=== PATIENT | male | born 1955 | race Caucasian/White ===

== ENCOUNTER 2023-04-03 00:35 | Inpatient (IN) | payer MEDICARE, SELFPAY ==
[2023-04-03] MEDS ORDERED: Ondansetron PF 4 MG/2 ML Vial ONE (00:58)
[2023-04-03] MEDS ORDERED: Morphine 4 MG/ML VIAL ONE (00:58)
[2023-04-03 01:24] LABS: #Monocytes 0.3 thou/uL (0.11-0.59); #Neutrophils 7.9 thou/uL (1.40-6.50); %Basophils 0.4 % (0.0-1.0); %Eosinophils 0.1 % (0.0-10.0); %Lymphocytes 8.3 % (21.0-51.0); %Monocytes 3.5 % (0.0-10.0); %Neutrophils 87.3 % (42.0-75.0); Hematocrit 41.7 % (42.0-52.0); Hemoglobin 14.5 g/dL (14.0-18.0); Mean Corpuscular HGB CONC 34.8 g/dL (32.0-36.0); Mean Corpuscular Volume 89.1 fl (78.0-98.0); Mean Platelet Volume 10.3 fL (7.4-10.4); Platelet Count 193 10x3/uL (130-400); RBC Distribution Width 13.8 % (11.5-14.5); Red Blood Cell (RBC) Count 4.68 mill/uL (4.70-6.10); White Blood Cell (WBC) Count 9.1 10x3/uL (4.8-10.8)
[2023-04-03 01:47] LABS: Anion Gap 16 mmol/L (10-20); BUN (Urea Nitrogen) 10 mg/dL (8.4-25.7); Calc. Creatinine Clearance 0 mL/min (70-130); Calcium 8.6 mg/dL (7.8-10.44); Carbon Dioxide 18 mmol/L (23-31); Chloride 107 mmol/L (98-107); Estimated GFR 95; Glucose 158 mg/dL (80-115); Lipase 9 U/L (8-78); Potassium 3.4 mmol/L (3.5-5.1); Sodium 138 mmol/L (136-145)
[2023-04-03] MEDS ORDERED: Potassium Chloride 20 MEQ TAB ONE (02:35)
[2023-04-03] MEDS ORDERED: Acetaminophen 325 MG TAB PO PRN (03:26)
[2023-04-03] MEDS ORDERED: Promethazine HCl 12.5 MG in Sodium Chloride 0.9% 50 ML IVPB PRN (03:26)
[2023-04-03] MEDS ORDERED: Pantoprazole 40 MG VIAL IVP SCH (03:30)
[2023-04-03] MEDS ORDERED: Sodium Chloride 0.9% 1,000 ML IV SCH (03:30)
[2023-04-03 03:44] LABS: Magnesium 1.6 mg/dL (1.6-2.6)
[2023-04-03 04:14] LABS: #Monocytes 0.2 thou/uL (0.11-0.59); #Neutrophils 6.7 thou/uL (1.40-6.50); %Basophils 0.4 % (0.0-1.0); %Lymphocytes 7.9 % (21.0-51.0); %Monocytes 2.8 % (0.0-10.0); %Neutrophils 88.2 % (42.0-75.0); Hematocrit 41.2 % (42.0-52.0); Hemoglobin 14.2 g/dL (14.0-18.0); Mean Corpuscular HGB CONC 34.5 g/dL (32.0-36.0); Mean Corpuscular Hemoglobin 30.9 pg (27.0-31.0); Mean Corpuscular Volume 89.6 fl (78.0-98.0); Mean Platelet Volume 10.5 fL (7.4-10.4); Platelet Count 194 10x3/uL (130-400); RBC Distribution Width 13.8 % (11.5-14.5); White Blood Cell (WBC) Count 7.6 10x3/uL (4.8-10.8)
[2023-04-03] MEDS ORDERED: Dextrose 50% Abboject 50 ML SYRINGE SLOW IVP PRN (04:21)
[2023-04-03] MEDS ORDERED: Glucagon 1 MG/ML KIT IM PRN (04:21)
[2023-04-03] MEDS ORDERED: HumaLOG 300 UNITS/3 ML VIAL SC PRN ×2 (04:21)
[2023-04-03] MEDS ORDERED: Dextrose 5% in Water 1,000 ML IV PRN (04:21)
[2023-04-03 04:42] LABS: Anion Gap 14 mmol/L (10-20); BUN (Urea Nitrogen) 9 mg/dL (8.4-25.7); Calc. Creatinine Clearance 0 mL/min (70-130); Calcium 8.3 mg/dL (7.8-10.44); Carbon Dioxide 19 mmol/L (23-31); Chloride 107 mmol/L (98-107); Estimated GFR 97; Glucose 188 mg/dL (80-115); Potassium 3.8 mmol/L (3.5-5.1); Sodium 136 mmol/L (136-145)
[2023-04-03] MEDS ORDERED: Magnesium Sulfate 3 GM in Sodium Chloride 0.9% 100 ML IVPB SCH (05:00)
[2023-04-03 05:03] LABS: Hemoglobin A1c 9.3 % (4.0-6.0)
[2023-04-03 05:23] LABS: Lactic Acid 1.7 mmol/L (0.5-2.2)
[2023-04-03 06:59] LABS: SARS-CoV-2 NAA Rapid Test Not Detected (NotDetected)
[2023-04-03] MEDS: Pantoprazole 40 MG VIAL IVP SCH (20:05)
[2023-04-04 04:42] LABS: #Basophils 0.1 thou/uL (0.0-0.2); #Eosinphils 0.2 thou/uL (0.0-0.7); #Monocytes 0.6 thou/uL (0.11-0.59); #Neutrophils 4.3 thou/uL (1.40-6.50); %Basophils 1.1 % (0.0-1.0); %Eosinophils 2.8 % (0.0-10.0); %Monocytes 8.4 % (0.0-10.0); Hematocrit 38.9 % (42.0-52.0); Hemoglobin 13.4 g/dL (14.0-18.0); Mean Corpuscular HGB CONC 34.4 g/dL (32.0-36.0); Mean Corpuscular Hemoglobin 31.3 pg (27.0-31.0); Mean Corpuscular Volume 90.9 fl (78.0-98.0); Mean Platelet Volume 10.2 fL (7.4-10.4); Platelet Count 179 10x3/uL (130-400); RBC Distribution Width 14.2 % (11.5-14.5); Red Blood Cell (RBC) Count 4.28 mill/uL (4.70-6.10); White Blood Cell (WBC) Count 7.2 10x3/uL (4.8-10.8)
[2023-04-04 05:13] LABS: Anion Gap 11 mmol/L (10-20); BUN (Urea Nitrogen) 10 mg/dL (8.4-25.7); Calc. Creatinine Clearance 68 mL/min (70-130); Calcium 8.6 mg/dL (7.8-10.44); Carbon Dioxide 24 mmol/L (23-31); Chloride 106 mmol/L (98-107); Estimated GFR 91; Glucose 120 mg/dL (80-115); Potassium 3.5 mmol/L (3.5-5.1); Sodium 137 mmol/L (136-145)
[2023-04-04] MEDS: Ondansetron PF 4 MG/2 ML Vial IVP PRN (05:26)
[2023-04-04] MEDS: Pantoprazole 40 MG VIAL IVP SCH ×2 (07:24→21:09)
[2023-04-04] MEDS ORDERED: fentaNYL 50 mcg/mL 1 mL Vial ONE (07:49)
[2023-04-04] MEDS ORDERED: PROPOFOL 20 ML ONE (07:49)
[2023-04-04] MEDS ORDERED: Lidocaine 2% PF 5 ML VIAL ONE (07:49)
[2023-04-04] MEDS ORDERED: Metoclopramide HCl 10 MG/2 ML VIAL ONE (07:55)
[2023-04-04] MEDS ORDERED: Promethazine HCl 25 MG/ML VIAL ONE (08:08)
[2023-04-04] MEDS ORDERED: Succinylcholine 200 MG/10 ml SYRINGE FS ONE (08:10)
[2023-04-04] MEDS ORDERED: Lidocaine 1% PF 5 ML VIAL ONE (08:15)
[2023-04-04] MEDS ORDERED: Esmolol 100 MG/10 ML VIAL ONE ×2 (08:15→08:22)
[2023-04-04] MEDS ORDERED: Succinylcholine Chloride 100 MG/5 ML SYRINGE FS ONE (08:15)
[2023-04-04] MEDS ORDERED: Ondansetron PF 4 MG/2 ML Vial ONE ×2 (08:15→08:21)
[2023-04-04] MEDS ORDERED: PROPOFOL 200 MG/20 ML VIAL ONE (08:15)
[2023-04-04] MEDS ORDERED: Metoclopramide HCl 10 MG/2 ML VIAL IVP PRN (09:26)
[2023-04-04] MEDS ORDERED: HYDROmorphone 0.5 MG/0.5 ML SYRINGE SLOW IVP SCH (10:30)
[2023-04-04] MEDS ORDERED: Prochlorperazine Edisylate 10 MG in Sodium Chloride 0.9% 50 ML IVPB SCH (10:30)
[2023-04-04] MEDS ORDERED: Morphine 2 MG/ML VIAL SLOW IVP SCH (10:30)
[2023-04-04 11:09] LABS: ALT (SGPT) 23 U/L (8-55); AST (SGOT) 30 U/L (5-34); Albumin 3.3 g/dL (3.4-4.8); Alkaline Phosphatase 116 U/L (40-110); Bilirubin, Direct 0.2 mg/dL (0.1-0.3); Bilirubin, Total 0.5 mg/dL (0.2-1.2); Lipase 9 U/L (8-78); Magnesium 1.8 mg/dL (1.6-2.6)
[2023-04-04] MEDS: NS 0.9% w/ 20 MEQ KCL 1,000 ML/1,000 ML BAG IV SCH ×2 (11:09→21:07)
[2023-04-04 11:20] LABS: Hematocrit 45.7 % (42.0-52.0); Hemoglobin 15.6 g/dL (14.0-18.0); Platelet Count 212 10x3/uL (130-400)
[2023-04-04 11:35] LABS: INR-International Normal Ratio 1.1; PTT 30.5 sec (22.9-36.1); Prothrombin Time 14.2 sec (12.0-14.7)
[2023-04-04 11:36] LABS: D-Dimer Test 1.29 *mcg/mL (0.27-0.43)
[2023-04-04] MEDS ORDERED: Iopamidol-370 76% 500 ML MDV (1 ML CHARGE) ONE (11:45)
[2023-04-04 11:48] LABS: Troponin I Less than 0.010 ng/mL (< 0.028)
[2023-04-04 11:59] LABS: Alkaline Phosphatase 145 U/L (40-110)
[2023-04-04 12:14] LABS: Base Excess -8.2 mEq/L (-2.0 to +3.0); Calcium, Ionized (venous) 1.08 mmol/L (1.16-1.32); Chloride (VBG) 101 mmol/L (98-106); Hematocrit-VBG 52 % (42.0-52.0); Hemoglobin (Hb) 17.6 g/dL (12.6-17.4); Potassium (VBG) 3.58 mmol/L (3.70-5.30); Sodium 138 mmol/L (133-146); pH (venous) 7.376 (7.32-7.43)
[2023-04-04 12:16] LABS: Actual Bicarbonate (HCO3v) 14.7 mEq/L (22-28)
[2023-04-04 12:20] LABS: ALT (SGPT) 36 U/L (8-55); AST (SGOT) 46 U/L (5-34); Anion Gap 23 mmol/L (10-20); BUN (Urea Nitrogen) 10 mg/dL (8.4-25.7); Calc. Creatinine Clearance 0 mL/min (70-130); Calcium 9.2 mg/dL (7.8-10.44); Carbon Dioxide 14 mmol/L (23-31); Chloride 104 mmol/L (98-107); Estimated GFR 95; Globulin 3.1 g/dL (2.4-3.5); Glucose 156 mg/dL (80-115); Potassium 3.7 mmol/L (3.5-5.1); Protein, Total 7.4 g/dL (5.8-8.1); Sodium 139 mmol/L (136-145)
[2023-04-04 12:26] LABS: Bilirubin, Total 0.9 mg/dL (0.2-1.2)
[2023-04-04] MEDS ORDERED: Non-Formulary Item 1 EACH (Atorvastatin Calcium [Atorvastatin Calcium] 80 MG Tablet) PO SCH (21:00)
[2023-04-04] MEDS: Atorvastatin Calcium 40 MG TAB PO SCH (21:07)
[2023-04-04] MEDS: Tamsulosin HCl 0.4 MG CAP PO SCH (21:09)
[2023-04-05 05:01] LABS: #Monocytes 0.4 thou/uL (0.11-0.59); #Neutrophils 5.6 thou/uL (1.40-6.50); %Basophils 0.6 % (0.0-1.0); %Eosinophils 0.1 % (0.0-10.0); %Lymphocytes 15.4 % (21.0-51.0); %Monocytes 5.1 % (0.0-10.0); %Neutrophils 78.4 % (42.0-75.0); Hematocrit 40.9 % (42.0-52.0); Hemoglobin 13.8 g/dL (14.0-18.0); Mean Corpuscular HGB CONC 33.7 g/dL (32.0-36.0); Mean Corpuscular Hemoglobin 31.2 pg (27.0-31.0); Mean Corpuscular Volume 92.3 fl (78.0-98.0); Mean Platelet Volume 10.2 fL (7.4-10.4); Platelet Count 205 10x3/uL (130-400); RBC Distribution Width 13.8 % (11.5-14.5); Red Blood Cell (RBC) Count 4.43 mill/uL (4.70-6.10); White Blood Cell (WBC) Count 7.1 10x3/uL (4.8-10.8)
[2023-04-05] MEDS: NS 0.9% w/ 20 MEQ KCL 1,000 ML/1,000 ML BAG IV SCH ×2 (05:31→15:46)
[2023-04-05 05:32] LABS: Anion Gap 19 mmol/L (10-20); BUN (Urea Nitrogen) 11 mg/dL (8.4-25.7); Calc. Creatinine Clearance 0 mL/min (70-130); Calcium 8.7 mg/dL (7.8-10.44); Carbon Dioxide 16 mmol/L (23-31); Chloride 104 mmol/L (98-107); Estimated GFR 95; Glucose 145 mg/dL (80-115); Magnesium 1.5 mg/dL (1.6-2.6); Sodium 135 mmol/L (136-145)
[2023-04-05] MEDS: Ondansetron PF 4 MG/2 ML Vial IVP PRN (05:38)
[2023-04-05 06:18] LABS: Bacteria/HPF None Seen HPF (None Seen); Bilirubin Negative (Negative); Blood, Urine Negative (Negative); CAUTI Indications for Culture Pelvic or flank pain; Clarity Clear (Clear); Glucose, Urine (Dipstick) Greater than 1000 mg/dL (Negative); Ketone, Urine Greater than 150 mg/dL (Negative); Leukocyte Negative Leu/uL (Negative); Nitrite Negative (Negative); Protein, Urine (Dipstick) Negative (Neg-Trace); RBC/HPF 0-3 HPF (0-3); Specific Gravity, Urine 1.021 (1.002-1.036); Squamous Epithelial 0-3 HPF (0-3); Urobilinogen Normal mg/dL (Less than 2); WBC/HPF 0-3 HPF (0-3)
[2023-04-05 06:21] LABS: Urine Culture Reflex No No
[2023-04-05] MEDS: Pantoprazole 40 MG VIAL IVP SCH ×2 (08:49→19:54)
[2023-04-05] MEDS: Gabapentin 100 MG CAP PO SCH (08:49)
[2023-04-05] MEDS ORDERED: BuPROPion XL 150 MG ER.TAB PO SCH (09:00)
[2023-04-05] MEDS: Sodium Chloride 0.9% 1,000 ML IV SCH (18:19)
[2023-04-05] MEDS: Ondansetron ODT 8 MG TAB SL PRN (19:52)
[2023-04-05] MEDS: Atorvastatin Calcium 40 MG TAB PO SCH (19:53)
[2023-04-05] MEDS: Tamsulosin HCl 0.4 MG CAP PO SCH (19:53)
[2023-04-06] MEDS: Sodium Chloride 0.9% 1,000 ML IV SCH ×3 (03:20→23:31)
[2023-04-06 05:21] LABS: #Eosinphils 0.1 thou/uL (0.0-0.7); #Monocytes 0.4 thou/uL (0.11-0.59); #Neutrophils 4.5 thou/uL (1.40-6.50); %Basophils 0.5 % (0.0-1.0); %Lymphocytes 18.9 % (21.0-51.0); %Neutrophils 72.8 % (42.0-75.0); Hemoglobin 14.7 g/dL (14.0-18.0); Mean Corpuscular Hemoglobin 30.9 pg (27.0-31.0); Mean Corpuscular Volume 88.4 fl (78.0-98.0); Mean Platelet Volume 10.2 fL (7.4-10.4); Platelet Count 208 10x3/uL (130-400); RBC Distribution Width 13.2 % (11.5-14.5); Red Blood Cell (RBC) Count 4.75 mill/uL (4.70-6.10); White Blood Cell (WBC) Count 6.2 10x3/uL (4.8-10.8)
[2023-04-06 05:48] LABS: ALT (SGPT) 30 U/L (8-55); AST (SGOT) 33 U/L (5-34); Albumin 3.4 g/dL (3.4-4.8); Alkaline Phosphatase 129 U/L (40-110); Anion Gap 19 mmol/L (10-20); BUN (Urea Nitrogen) 9 mg/dL (8.4-25.7); Bilirubin, Total 0.8 mg/dL (0.2-1.2); Calc. Creatinine Clearance 0 mL/min (70-130); Carbon Dioxide 16 mmol/L (23-31); Chloride 101 mmol/L (98-107); Estimated GFR 97; Globulin 3.6 g/dL (2.4-3.5); Glucose 128 mg/dL (80-115); Magnesium 1.4 mg/dL (1.6-2.6); Potassium 3.9 mmol/L (3.5-5.1); Sodium 132 mmol/L (136-145)
[2023-04-06 06:05] LABS: HBSAB Concentration Less than 8.00 mIU/mL; HBSAg Index 0.19 S/CO (0-0.99); Hep B Surf AB Non-Reactive (NonReactive); Hep B Surf Ag Non-Reactive S/CO (NonReactive); Hep C IgG Ab Non-Reactive S/CO (NonReactive); Hep C Index 0.27 S/CO (0-0.79)
[2023-04-06] MEDS: Pantoprazole 40 MG VIAL IVP SCH ×2 (08:05→20:08)
[2023-04-06] MEDS: Ondansetron ODT 8 MG TAB SL PRN (08:05)
[2023-04-06] MEDS: Gabapentin 100 MG CAP PO SCH (08:05)
[2023-04-06] MEDS ORDERED: Polyethylene Glycol 3350 17 GM Packet PO PRN (08:43)
[2023-04-06] MEDS ORDERED: Senokot S 8.6-50 MG TAB PO PRN (08:43)
[2023-04-06] MEDS ORDERED: Electrolyte Replacement Protocol 1 EACH FS SCH (08:45)
[2023-04-06] MEDS ORDERED: Electrolyte Replacement Protocol FS PRN (09:00)
[2023-04-06] MEDS ORDERED: Magnesium 2 GM/50 ML(in water) 2 GM in Premix 1 BAG IVPB SCH (09:00)
[2023-04-06] MEDS ORDERED: Magnesium Sulfate In Water 4 GM in Premix 1 BAG IVPB SCH (09:00)
[2023-04-06] MEDS ORDERED: FLU VACC QS2023(65UP)/MF59C/PF 60 MCG/0.5 ML SYRINGE IM ONE (09:00)
[2023-04-06] MEDS ORDERED: dilTIAZem 25 MG/5 ML VIAL SLOW IVP SCH (11:45)
[2023-04-06] MEDS ORDERED: dilTIAZem CD 120 MG CAP PO SCH (12:00)
[2023-04-06] MEDS ORDERED: Aspirin 81 mg Enteric Coated Tablet PO SCH (12:00)
[2023-04-06] MEDS: Metoclopramide HCl 10 MG/2 ML VIAL IVP SCH ×2 (16:28→23:31)
[2023-04-06] MEDS: Atorvastatin Calcium 40 MG TAB PO SCH (20:07)
[2023-04-06] MEDS: Tamsulosin HCl 0.4 MG CAP PO SCH (20:08)
[2023-04-06] MEDS: dilTIAZem CD 120 MG CAP PO SCH (20:08)
[2023-04-07] MEDS: Metoclopramide HCl 10 MG/2 ML VIAL IVP SCH ×3 (05:00→17:18)
[2023-04-07 05:04] LABS: #Basophils 0.1 thou/uL (0.0-0.2); #Eosinphils 0.1 thou/uL (0.0-0.7); #Monocytes 0.5 thou/uL (0.11-0.59); %Basophils 0.9 % (0.0-1.0); %Eosinophils 0.9 % (0.0-10.0); %Lymphocytes 19.3 % (21.0-51.0); Hematocrit 40.7 % (42.0-52.0); Hemoglobin 14.5 g/dL (14.0-18.0); Mean Corpuscular HGB CONC 35.6 g/dL (32.0-36.0); Mean Corpuscular Hemoglobin 31.4 pg (27.0-31.0); Mean Corpuscular Volume 88.1 fl (78.0-98.0); Mean Platelet Volume 9.9 fL (7.4-10.4); Platelet Count 215 10x3/uL (130-400); RBC Distribution Width 13.4 % (11.5-14.5); Red Blood Cell (RBC) Count 4.62 mill/uL (4.70-6.10); White Blood Cell (WBC) Count 5.7 10x3/uL (4.8-10.8)
[2023-04-07 05:33] LABS: ALT (SGPT) 27 U/L (8-55); AST (SGOT) 27 U/L (5-34); Albumin 3.3 g/dL (3.4-4.8); Alkaline Phosphatase 116 U/L (40-110); Anion Gap 18 mmol/L (10-20); BUN (Urea Nitrogen) 9 mg/dL (8.4-25.7); Bilirubin, Total 0.7 mg/dL (0.2-1.2); Calc. Creatinine Clearance 72 mL/min (70-130); Calcium 8.8 mg/dL (7.8-10.44); Carbon Dioxide 18 mmol/L (23-31); Chloride 102 mmol/L (98-107); Estimated GFR 95; Glucose 145 mg/dL (80-115); Magnesium 1.6 mg/dL (1.6-2.6); Potassium 3.7 mmol/L (3.5-5.1); Protein, Total 6.3 g/dL (5.8-8.1); Sodium 134 mmol/L (136-145)
[2023-04-07] MEDS ORDERED: Magnesium 2 GM/50 ML(in water) 2 GM in Premix 1 BAG IVPB SCH (08:00)
[2023-04-07] MEDS: Gabapentin 100 MG CAP PO SCH (08:31)
[2023-04-07] MEDS: dilTIAZem CD 120 MG CAP PO SCH (08:31)
[2023-04-07] MEDS: Pantoprazole 40 MG VIAL IVP SCH (08:32)
[2023-04-07] MEDS: Sodium Chloride 0.9% 1,000 ML IV SCH (08:33)
[2023-04-07] MEDS ORDERED: Aspirin 81 mg Enteric Coated Tablet PO SCH (09:00)
[2023-04-07 12:06] VITALS: BP 130/65; TEMP 97.1
== END 2023-04-07 17:34 | disposition home or self-care (01) | DRG 74 ==
LOC: ERS 00:35 → 2SW 03:26 → OBSVTOIN 04-04 10:45
PROVIDERS: ADMIT Internal Medicine; ATTEND Family Medicine
PROC: 0DB98ZX Excision of Duodenum, Via Natural or Artificial Opening Endoscopic, Diagnostic (ICD-10-PCS; principal; 2023-04-04)
PROC: 0DB78ZX Excision of Stomach, Pylorus, Via Natural or Artificial Opening Endoscopic, Diagnostic (ICD-10-PCS; 2023-04-04)
DX: E11.43 Type 2 diabetes mellitus with diabetic autonomic (poly)neuropathy (principal); E87.20 Acidosis, unspecified; I47.19 Other supraventricular tachycardia; I48.92 Unspecified atrial flutter; E87.1 Hypo-osmolality and hyponatremia; E78.5 Hyperlipidemia, unspecified; K21.9 Gastro-esophageal reflux disease without esophagitis; F17.210 Nicotine dependence, cigarettes, uncomplicated; E11.65 Type 2 diabetes mellitus with hyperglycemia; E86.0 Dehydration; E11.51 Type 2 diabetes mellitus with diabetic peripheral angiopathy without gangrene; I25.10 Atherosclerotic heart disease of native coronary artery without angina pectoris; K29.70 Gastritis, unspecified, without bleeding; E83.42 Hypomagnesemia; N40.1 Benign prostatic hyperplasia with lower urinary tract symptoms; K31.84 Gastroparesis; R33.8 Other retention of urine; Z11.52 Encounter for screening for COVID-19
CPT/HCPCS: 36415; 36416; 71045; 71275; 74177; 76705; 78264; 80048; 80053; 80076; 81001; 82533; 82805; 83036; 83605; 83690; 83735; 84443; 84484; 85025; 85379; 85610; 85730; 86706; 86708; 86803; 86850; 86900; 86901; 87040; 87340; 88305; 93005; 93010; 93970; 96361; 96365; 96374; 96375; 96376; A9541; C9113; G0378; J0780; J1170; J2001; J2270; J2405; J2550; J2704; J2765; J3010; J3475; J3480; J3490; J7050; Q0162; Q9967; U0002